=== PATIENT | female | born 1945 | race American Indian/Alaskan Native ===

== ENCOUNTER 2018-05-20 16:42 | Emergency (ER) | payer MEDICARE, OTHER ==
[2018-05-20 17:02] VITALS: BMI 23.6
[2018-05-20 17:04] VITALS: RESP 18; O2SAT 99
[2018-05-20] MEDS ORDERED: DiphenhydrAMINE 50 mg/ml Inj IVP STA (17:28)
--- NOTE | 2018-05-20 17:28 | ED PDOC ---
Arrival/HPI - General Chief Complaint: Headache Time Seen by Provider: 05/20/18 17:13 Historian: Patient - History of Present Illness Narrative History of Present Illness (Text): 05/20/18 17:42 73yo female with no pmhx who present with complaint of diffuse headache x 6days. States she was seen at Urgent care center for the same headache and was given Fioricet and Benadryl, which only relieves the symptom temporary. States she has been taking the medication every 2hrs with temporary relieve. she denies visual changes, photophobia, nausea, vomiting, focal weakness, facial droop, neck pain, rash, fever, nuchal ridigity, abdominal pain, trauma, any other complaint Past Medical History - Provider Review Nursing Documentation Reviewed: Yes - Infectious Disease Hx of Infectious Diseases: None - Reproductive Menopause: Yes - Psychiatric Hx Substance Use: No Family/Social History - Physician Review Nursing Documentation Reviewed: Yes Family/Social History: Unknown Family HX Smoking Status: Never Smoked Hx Alcohol Use: Yes Frequency of alcohol use: Few days per week Hx Substance Use: No Allergies/Home Meds Allergies/Adverse Reactions: Allergies penicillin G Allergy (Verified 05/20/18 17:02) SWELLING Home Medications: Home Meds Medication Instructions Recorded Confirmed Butalbital/Acetaminophen 1 tab PO PRN PRN 05/20/18 05/20/18 [Butalbital-Acetaminophn 50-325] RX: DiphenhydrAMINE [Benadryl] 25 mg PO HS 05/20/18 05/20/18 Review of Systems - Physician Review All systems were reviewed & negative as marked: Yes - Review of Systems Constitutional: Normal Eyes: Normal ENT: Normal Respiratory: Normal Cardiovascular: Normal Gastrointestinal: Normal Genitourinary Female: Normal Musculoskeletal: Normal Skin: Normal Neurological: Headache. absent: Dizziness, Focal Weakness, Speech Changes Endocrine: Normal Hemo/Lymphatic: Normal Psychiatric: Normal Physical Exam Vital Signs Reviewed: Yes Vital Signs Temp Pulse Resp BP Pulse Ox 05/20/18 17:02 98.0 F 87 18 176/93 H 99 Temperature: Afebrile Blood Pressure: Normal Pulse: Regular Respiratory Rate: Normal Appearance: Positive for: Well-Appearing, Non-Toxic, Comfortable Pain Distress: None Mental Status: Positive for: Alert and Oriented X 3 - Systems Exam Head: Present: Atraumatic, Normocephalic Pupils: Present: PERRL Extroacular Muscles: Present: EOMI Conjunctiva: Present: Normal Mouth: Present: Moist Mucous Membranes Neck: Present: Normal Range of Motion Respiratory/Chest: Present: Clear to Auscultation, Good Air Exchange. No: Respiratory Distress, Accessory Muscle Use Cardiovascular: Present: Regular Rate and Rhythm, Normal S1, S2. No: Murmurs Abdomen: No: Tenderness, Distention, Peritoneal Signs Back: Present: Normal Inspection Upper Extremity: Present: Normal Inspection. No: Cyanosis, Edema Lower Extremity: Present: Normal Inspection. No: Edema Neurological: Present: GCS=15, CN II-XII Intact, Speech Normal, Motor Func Grossly Intact, Normal Sensory Function, Normal Cerebellar Funct, Norm Deep Tendon Reflexes, Gait Normal, Memory Normal, Normal 2Pt Descrimination, Other (No focal neurological deficit) Skin: Present: Warm, Dry, Normal Color. No: Rashes Psychiatric: Present: Alert, Oriented x 3, Normal Insight, Normal Concentration Medical Decision Making ED Course and Treatment: 05/20/18 18:12 73yo female in ED for headache x 6days. Pt have no neurological deficit. Her neck is supple. She was afebrile. Labs Head CT Benadryl, Decadron, Saline EKG will reassess 05/20/18 19:24 IMPRESSION: No definite acute intracranial findings with limited age-related degenerative findings appreciated. Dilated perivascular spaces are favored over chronic lacunes at the inferior left basal ganglia. Incidental chronic sinusitis with potential underlying acute sinusitis changes underlying. 05/21/18 01:35 PT noted resolution of her headache in ED. She was treated with clindamycin and DC home with same medication. Advised to f/u with her PMD. TRT ED for worsening symptoms - RAD Interpretation Radiology Orders: 05/20/18 17:26 HEAD W/O CONTRAST [CT] Stat Disposition/Present on Arrival - Present on Arrival Any Indicators Present on Arrival: No History of DVT/PE: No History of Uncontrolled Diabetes: No Urinary Catheter: No History of Decub. Ulcer: No History Surgical Site Infection Following: None - Disposition Have Diagnosis and Disposition been Completed?: Yes Diagnosis: Acute sinus infection, Headache Disposition: HOME/ ROUTINE Disposition Time: 19:35 Patient Plan: Discharge Condition: IMPROVED Discharge Instructions (ExitCare): Sinusitis in Adults, Headache, Adult (DC) Additional Instructions: Follow up with your Doctor. Call tomorrow at 1100am Return to ED for any new or worsening symptoms Prescriptions: RX: Clindamycin [Cleocin] 300 mg PO TID #21 cap Referrals: Rosalio Cardenas MD [Staff Provider] - Follow up with primary Forms: Pheed (H[place]ian)
[2018-05-20] MEDS ORDERED: Sodium Chloride 0.9% 1,000 ML IV ONE (18:13)
--- NOTE | 2018-05-20 18:28 | CT ---
Date of service: 05/20/2018 PROCEDURE: CT HEAD WITHOUT CONTRAST. HISTORY: headache COMPARISON: None available. TECHNIQUE: Axial computed tomography images were obtained through the head/brain without intravenous contrast. Radiation dose: Total exam DLP = 936.71 mGy-cm. This CT exam was performed using one or more of the following dose reduction techniques: Automated exposure control, adjustment of the mA and/or kV according to patient size, and/or use of iterative reconstruction technique. FINDINGS: HEMORRHAGE: No intracranial hemorrhage. BRAIN: The moss-white matter differentiation is well preserved. There is no mass effect or definitive edema pattern appreciated including the cortex. There is proportional expansion of the ventriculosulcal and cisternal spaces however in a pattern most compatible with diffuse cerebral atrophy. Borderline periventricular white matter lucency may indicate minimal chronic microangiopathy. Dilated perivascular spaces are identified the inferior left basal ganglia favored over chronic lacunes. No suspicious extra-axial fluid collection is identified in the midline brain anatomy appears grossly nonfocal as imaged. No atrophy or chronic microvascular ischemic changes. VENTRICLES: Unremarkable. No hydrocephalus. CALVARIUM: Unremarkable. PARANASAL SINUSES: Complete opacification of the bilateral maxillary sinuses is appreciate with hyperostosis of the maxillary sinus samayoa, also seen at the left frontal sinus with partial opacification of the bilateral ethmoid air cells and right frontal sinus but also with hyperostosis in a pattern that likely reflects chronic sinusitis. Underlying acute sinusitis not excluded. MASTOID AIR CELLS: Unremarkable as visualized. No inflammatory changes. OTHER FINDINGS: None. IMPRESSION: No definite acute intracranial findings with limited age-related degenerative findings appreciated. Dilated perivascular spaces are favored over chronic lacunes at the inferior left basal ganglia. Incidental chronic sinusitis with potential underlying acute sinusitis changes underlying.
[2018-05-20 18:56] LABS: BASO # 0.02 K/mm3 (0.0-2.0); BASO % 0.3 % (0.0-3.0); EOS % 0.4 % (1.5-5.0); GRAN # 3.66 (1.4-6.5); GRAN % 49.8 % (50.0-68.0); HEMOGLOBIN 12.8 g/dL (12.0-16.0); LYMPH # 2.1 (1.2-3.4); LYMPH % 27.9 % (22.0-35.0); MEAN CELL VOLUME 84.9 fl (80.0-105.0); MEAN CORPUSCULAR HEMOGLOBIN 28.1 pg (25.0-35.0); MEAN CORPUSCULAR HGB CONC 33.1 g/dl (31.0-37.0); MEAN PLATELET VOLUME 10.6 fl (7.0-11.0); MONO # 1.6 (0.1-0.6); MONO % 21.6 % (1.0-6.0); PLATELET COUNT 222 10^3/uL (120.0-450.0); RBC 4.56 10^6/uL (3.5-6.1); RED CELL DISTRIBUTION WIDTH 12.8 % (11.5-14.5); WHITE BLOOD COUNT 7.4 10^3/ul (4.5-11.0)
[2018-05-20 19:01] LABS: INR 1.17; PARTIAL THROMBOPLASTIN TIME 28.7 Seconds (25.1-36.5); PROTHROMBIN TIME 13.4 SECONDS (9.4-12.5)
[2018-05-20 19:04] LABS: ALBUMIN 4.1 g/dL (3.0-4.8); ALT/SGPT 38 U/L (7-56); AST/SGOT 56 U/L (14-36); BLOOD UREA NITROGEN 14 mg/dL (7-21); CALCIUM 9.5 mg/dL (8.4-10.5); GFR NON-AFRICAN AMERICAN > 60
[2018-05-20 19:18] LABS: BASOPHIL 1 % (0.0-1.0); LYMPHOCYTE 23 % (22.0-35.0); MONOCYTE 19 % (1.0-6.0); NEUTROPHIL 57 % (50.0-70.0)
[2018-05-20 19:19] LABS: PLATELET ESTIMATE NORMAL (NORMAL)
[2018-05-20 19:49] LABS: ERYTHROCYTE SEDIMENTATION RATE 87 mm/hr (0.0-20.0)
[2018-05-20 21:18] VITALS: TEMP 98.3
[2018-05-20 21:19] VITALS: BP 137/82; PULSE 72
== END 2018-05-20 21:35 | disposition home or self-care (01) ==
LOC: ED 16:42
DX: J01.90 Acute sinusitis, unspecified (principal); R51 Headache
CPT/HCPCS: 70450; 80053; 83735; 85025; 85610; 85651; 85730; 96374; 96375; 99285; J1100; J1200; J2765; J7030